=== PATIENT | male | born 2000 | race Two or more races ===

== ENCOUNTER 2024-04-18 19:12 | Emergency (ER) | payer OTHER ==
[~2024-04-18] VITALS: Ht 165.1 cm; Wt 100.0 kg
[2024-04-18] MEDS ORDERED: IBUP-1455 PO (21:28)
[2024-04-18] MEDS ORDERED: ACE3T PO (21:28)
[2024-04-18] MEDS ORDERED: ZOFR4T PO (21:28)
[2024-04-18 21:41] VITALS: BP 113/76
[2024-04-18] MEDS: ONDANSETRON ODT 4 MG TAB PO ONE (21:43)
[2024-04-18] MEDS: ACETAMINOPHEN/CODEINE#3 (300/30mg) TAB PO ONE (21:43)
[2024-04-18 21:44] VITALS: PULSE 77; RESP 18; O2SAT 96
== END 2024-04-18 21:51 | disposition home or self-care (01) ==
LOC: ER 19:12
DX: S00.83XA Contusion of other part of head, initial encounter (principal); F17.210 Nicotine dependence, cigarettes, uncomplicated; F41.9 Anxiety disorder, unspecified; F32.A Depression, unspecified; W31.89XA Contact with other specified machinery, initial encounter; Y93.89 Activity, other specified; Y92.89 Other specified places as the place of occurrence of the external cause; Y99.8 Other external cause status
CPT/HCPCS: 70450; 99284; Q0162